=== PATIENT | female | born 2000 | race Caucasian/White ===

== ENCOUNTER 2024-11-12 16:59 | Inpatient (IN) | payer OTHER ==
[~2024-11-12] VITALS: Ht 160 cm; Wt 67.3 kg
[2024-11-12 17:53] LABS: PLATELET COUNT, AUTOMATED 345 10^3/uL (150-450)
[2024-11-12 18:15] LABS: AMPHETAMINES LEVEL URINE NEGATIVE (NEGATIVE); BARBITURATES URINE NEGATIVE (NEGATIVE); BENZODIAZEPINES URINE NEGATIVE (NEGATIVE); CANNABINOIDS URINE NEGATIVE (NEGATIVE); COCAINE METABOLITE URINE NEGATIVE (NEGATIVE); ETHYL ALCOHOL (ETHANOL) 0.004 % (0.000-0.010); METHADONE URINE NEGATIVE (NEGATIVE); OPIATES URINE NEGATIVE (NEGATIVE); PHENCYCLIDINE URINE NEGATIVE (NEGATIVE)
[2024-11-12 18:16] LABS: HCG, SERUM QUALITATIVE NEGATIVE (NEGATIVE); SALICYLATE LEVEL < 3.0 MG/DL (<30)
[2024-11-12 18:17] LABS: ALT/SGPT 36 U/L (7.0-40); AST/SGOT 29 U/L (<34); CALCIUM LEVEL 9.3 MG/DL (8.5-10.1); CARBON DIOXIDE LEVEL 30 MMOL/L (20-31); CHLORIDE LEVEL 102 MMOL/L (98-107); CREATININE FOR GFR 0.81 MG/DL (0.55-1.30); GLOMERULAR FILTRATION RATE > 90.0 (>60); POTASSIUM SERUM 4.3 MMOL/L (3.5-5.1); SODIUM LEVEL 140 MMOL/L (136-145)
[2024-11-12] MEDS ORDERED: ACET-897 PO (21:41)
[2024-11-12] MEDS ORDERED: HOME MED LIST COMPLETE! XX SCH (21:45)
[2024-11-12] MEDS ORDERED: MAALOX 30 ML SUSP *UDC PO PRN (22:20)
[2024-11-12] MEDS ORDERED: IBUPROFEN 400 MG TAB PO PRN (22:20)
[2024-11-12] MEDS ORDERED: MOM 30 ML SUSPENSION UDC PO PRN (22:20)
[2024-11-12 23:42] VITALS: BP 102/58; TEMP 97; O2SAT 100
[2024-11-13] MEDS: ACETAMINOPHEN 325 MG TAB PO PRN (00:37)
[2024-11-13] MEDS: traZODone 50 MG TAB PO PRN (00:37)
[2024-11-13 06:36] VITALS: BP 120/60; TEMP 98.1; O2SAT 100
== END 2024-11-13 15:12 | disposition home or self-care (01) | DRG 881 ==
LOC: M ED 16:59 → EDBD 16:59 → M ED INP 22:16 → M PSY 23:19
PROVIDERS: ADMIT Student in an Organized Health Care Education/Training Program; ATTEND Student in an Organized Health Care Education/Training Program
DX: F32.A Depression, unspecified (principal); R45.851 Suicidal ideations; M94.0 Chondrocostal junction syndrome [Tietze]; S51.812A Laceration without foreign body of left forearm, initial encounter; X78.9XXA Intentional self-harm by unspecified sharp object, initial encounter; Y92.9 Unspecified place or not applicable; Z63.0 Problems in relationship with spouse or partner; Z88.1 Allergy status to other antibiotic agents

== ENCOUNTER → 2025-02-19 | Outpatient (CLI) | payer OTHER ==
[~2025-02-19] MED LIST: ACET-897 PO; METHACHOLINE KIT (6 VIAL.NEB PREMIX) INH ONE
== END ==
LOC: M CARPUL 13:30
PROVIDERS: ATTEND Physician Assistant
DX: R06.00 Dyspnea, unspecified (principal)
CPT/HCPCS: 94070; 95070; J7674